=== PATIENT | male | born 1970 | race Hispanic/Latino ===

== ENCOUNTER 2017-09-23 17:07 | Emergency (ER) | payer SELFPAY ==
[2017-09-23 17:19] VITALS: TEMP 98.2
--- NOTE | 2017-09-23 17:23 | ED.PDOC ---
History of Present Illness - General Chief Complaint: Respiratory Problem Stated Complaint: cough and chest pain Time Seen by Provider: 09/23/17 17:19 Source: EMS Exam Limitations: intoxication Additional Information: BROUGHT IN BY EMS FOR COUGH, CONGESTION, ST, CHEST PAIN - History of Present Illness Allergies/Adverse Reactions: Allergies NO KNOWN ALLERGY Allergy (Verified 09/23/17 17:19) Home Medications: Ambulatory Orders Amoxicillin [Amoxil] 500 mg PO TID #30 cap 09/23/17 Benzonatate Perles [Tessalon Perles] 100 mg PO TID PRN #15 cap 09/23/17 Indomethacin 50 mg PO TID PRN #14 cap 09/23/17 Lisinopril 20 mg PO Q24HR #30 tab 09/23/17 Review of Systems - Review of Systems Unable to Obtain Due To: other - INTOXICATION Past Medical History (General) - Patient Medical History Hx Asthma: No Hx Hypertension: Yes - NON COMPLIANT - Vaccination History Hx Influenza Vaccination: - unknown Hx Pneumococcal Vaccination: - unknown - Social History Hx Tobacco Use: No Hx Alcohol Use: Yes - 5 beer and whiskey today Hx Substance Use: No Family Medical History - Family History Mother Family History: Unknown Physical Exam - Physical Exam General Appearance: Alert, No apparent distress, Other - OBVIOUSLY INTOXICATED Eye Exam: bilateral normal ENT Exam: TMs normal, pharynx normal Neck: non-tender, full range of motion, supple, normal inspection Respiratory: lungs clear, normal breath sounds, no respiratory distress Cardiovascular/Chest: regular rate, rhythm, no murmur Gastrointestinal/Abdominal: non tender, soft, no organomegaly Extremity: normal range of motion, non-tender, normal inspection Neurologic: other - INTOXICATED BUT FOLLOWS COMMANDS AND AROUSES TO VERBAL STIMULI Skin Exam: normal color Lymphatic: no adenopathy Progress - Progress Progress: 09/23/17 19:33 FEELS BETTER. FAMILY NOW RELATES HAS BEEN COUGHING FOR 3 WEEKS. NON PRODUCTIVE. PT SITTING UP IN BED ALERT NOW. SATS 98% RA (NL) - EKG/XRAY/CT EKG: Sinus - 96, NL AXIS, NL INTERVALS, , no ST T wave changes - NAIP, NO OLD FOR COMPRAISON XRAY: chest - NAIP Departure - Departure Clinical Impression: Acute bronchitis, Hypertension Time of Disposition: 19:45 Disposition: Discharge to Home or Self Care Condition: Good Departure Forms: ED Discharge - Pt. Copy, Patient Portal Self Enrollment Instructions: Acute Bronchitis Referrals: Kan Bustillos MD [Primary Care Provider] - 1-2 Weeks Prescriptions: Lisinopril 20 mg PO Q24HR #30 tab Amoxicillin [Amoxil] 500 mg PO TID #30 cap Benzonatate Perles [Tessalon Perles] 100 mg PO TID PRN #15 cap PRN Reason: Cough Indomethacin 50 mg PO TID PRN #14 cap PRN Reason: Pain Home Medications: Ambulatory Orders Amoxicillin [Amoxil] 500 mg PO TID #30 cap 09/23/17 Benzonatate Perles [Tessalon Perles] 100 mg PO TID PRN #15 cap 09/23/17 Indomethacin 50 mg PO TID PRN #14 cap 09/23/17 Lisinopril 20 mg PO Q24HR #30 tab 09/23/17
--- NOTE | 2017-09-23 17:55 | RAD ---
PROCEDURE: XR CHEST 1 VIEW HISTORY: COUGH COMPARISON: None TECHNIQUE: Single projection of the chest was done. FINDINGS: The lung silvestre are well inflated . There are no discrete airspace infiltrates, pneumothoraces or pleural effusions. The pulmonary vascularity is normal. The cardiomediastinal silhouette is unremarkable for patient's age and sex. IMPRESSION: There is no acute pleural-parenchymal process seen in the imaged lung silvestre. Location of Interpretation: Teleradiology Electronically signed by: Dominik Foster MD 09/23/2017 5:54 PM [facility] Workstation: [employer]-
[2017-09-23] MEDS ORDERED: TRIAMCINOLONE ACETONIDE INJ 40 MG/ML VIAL IM ONE (21:00)
[2017-09-23] MEDS ORDERED: cefTRIAXone SODIUM 1 GM VIAL IM ONE (21:00)
[2017-09-23] MEDS ORDERED: LIDOCAINE 1% 10 ML VIAL INJ ONE (21:05)
[2017-09-23 21:14] VITALS: BP 135/90; O2SAT 99
== END 2017-09-23 21:19 | disposition home or self-care (01) ==
LOC: ER 17:07
DX: J20.9 Acute bronchitis, unspecified (principal); I10 Essential (primary) hypertension
CPT/HCPCS: 36415; 71045; 80053; 85025; 93005; J0696; J3301